=== PATIENT | female | born 1995 | race Hispanic/Latino ===

== ENCOUNTER 2024-03-13 18:34 | Emergency (ER) | payer SELFPAY ==
--- NOTE | 2024-03-13 18:36 | ED.FEMALEGU ---
HPI - Female Genitourinary General Chief complaint: Urogenital-Female Stated complaint: UTI Time Seen by Provider: 03/13/24 18:36 Source: patient, family and financial dealers Mode of arrival: ambulatory Limitations: no limitations History of Present Illness HPI Narrative: Sadia is a 28-year-old female patient presenting to the clinic today with complaints of possible urinary tract infection x1 week. She reports burning, frequency, urgency, and mild low back pain. Denies any abdominal pain. Last menstrual period was February 19. Denies any vaginal discharge at this time. Review of Systems Review of Systems: Pertinent positives per HPI. Patient denies any fever, chills, rash, headache, visual changes, dizziness, cough, runny nose, sore throat, shortness of breath, chest pain, palpitations, nausea, vomiting, diarrhea, constipation, abdominal pain PMFSH Comments At the time of my signature, I reviewed and agree with the nursing past medical, surgical, social, and family history. There is no relevant family history pertinent to the patient complaint. Exam Narrative: General: Well-developed, well nourished, in no apparent distress. Head: Normocephalic, atraumatic. Cardio: Regular rate and rhythm, s1 and s2 normal, no murmur appreciated. Resp: Clear to auscultation bilaterally, no rhonchi, rales, wheezing or rubs. Abdomen: Soft, pliable, bowel sounds present in all quadrants, suprapubic tender to palpation, no organomegly, no CVAT tenderness. Course Course Emergency Course: Portions of this record may have been created with voice recognition software. Level of Care: Express Care Visit Vital Signs Vital signs: Vital Signs Temperature 37.6 C 03/13/24 18:53 Pulse Rate 80 03/13/24 18:53 Respiratory Rate 16 03/13/24 18:53 Blood Pressure 113/61 03/13/24 18:53 Pulse Oximetry 99 03/13/24 18:53 Oxygen Delivery Room Air 03/13/24 18:53 Temperature 37.6 C 03/13/24 18:53 Pulse Rate 80 03/13/24 18:53 Respiratory Rate 16 03/13/24 18:53 Blood Pressure 113/61 03/13/24 18:53 Pulse Oximetry 99 03/13/24 18:53 Oxygen Delivery Room Air 03/13/24 18:53 Vital signs reviewed MDM - Female Genitourinary MDM Narrative Medical decision making narrative: At the time of visit patient is resting comfortably on the exam table. Patient appears to be nontoxic. Labs: UA positive for leukocytes, blood, ketones, nitrates, and protein. Plan: I suspect patient has acute UTI with hematuria. Prescription for Bactrim was sent to the pharmacy. Supportive measures were discussed with the patient and they voiced understanding discharge instructions and agrees to treatment plan. Return precautions reviewed Differential Diagnosis Differential diagnosis: Likely urinary tract infection and cystitis Lab Data Labs: Urine Glucose Negative Reference Range: Negative Urine Bilirubin Negative Reference Range: Negative Urine Ketone Trace Reference Range: Negative Urine Specific Royal 1.020 Reference Range:1.001-1.035 Urine Blood 3+ Reference Range: Negative * * Urine pH 5.5 Reference Range: 5.0-9.0 Urine Protein 3+ Reference Range: Negative Urine Urobilinogen 0.2 Reference Range: 0.2-1.0 Urine Nitrate Positive Reference Range: Negative
[2024-03-13 18:53] VITALS: BP 113/61; PULSE 80; RESP 16; TEMP 37.6; O2SAT 99
== END 2024-03-13 19:05 | disposition home or self-care (01) ==
PROVIDERS: Emergency Provider Nurse Practitioner Family
DX: N39.0 Urinary tract infection, site not specified (principal); B96.20 Unspecified Escherichia coli [E. coli] as the cause of diseases classified elsewhere
CPT/HCPCS: 81003; 87077; 87086; 87088; 87186; 99213; G0463